=== PATIENT | female | born 1970 | race American Indian/Alaskan Native ===

== ENCOUNTER 2016-09-15 13:55 | Emergency (ER) | payer MEDICAID ==
[2016-09-15 14:21] VITALS: BMI 38.2
[2016-09-15 14:52] LABS: ADD MANUAL DIFF? NO
[2016-09-15 14:59] LABS: BASO # 0.01 [, K/mm3] (0.0-2.0); BASO % 0.2 % (0.0-3.0); EOS # 0.1 (0.0-0.7); EOS % 1.2 % (1.5-5.0); GRAN # 1.85 (1.4-6.5); GRAN % 44.4 % (50.0-68.0); LYMPH # 1.8 (1.2-3.4); LYMPH % 43.9 % (22.0-35.0); MEAN CORPUSCULAR HEMOGLOBIN 29.6 pg (25.0-35.0); MEAN PLATELET VOLUME 10.7 fl (7.0-11.0); MONO # 0.4 (0.1-0.6); MONO % 10.3 % (1.0-6.0); PLATELET COUNT 194 [, 10^3/uL] (120.0-450.0); RED CELL DISTRIBUTION WIDTH 13.5 % (11.5-14.5); WHITE BLOOD COUNT 4.2 [, 10^3/ul] (4.5-11.0)
[2016-09-15 15:09] LABS: ALB/GLOB RATIO 1.3 (1.1-1.8); ALKALINE PHOSPHATASE 68 U/L (38-133); ALT/SGPT 31 U/L (7-56); AST/SGOT 15 U/L (15-39); BILIRUBIN,TOTAL 0.9 mg/dL (0.2-1.3); BLOOD UREA NITROGEN 9 mg/dL (7-21); CALCIUM 10.8 mg/dL (8.4-10.5); CARBON DIOXIDE 26 mmol/L (21-33); CHLORIDE 103 mmol/L (98-107); GFR AFRICAN-AMERICAN > 60; GLUCOSE,RANDOM 98 mg/dL (70-110); POTASSIUM 4.2 mmol/L (3.6-5.0); SODIUM 138 mmol/L (132-148)
[2016-09-15 15:10] LABS: INR 0.95 (0.93-1.08); PARTIAL THROMBOPLASTIN TIME 27.5 Seconds (23.7-30.8)
--- NOTE | 2016-09-15 15:10 | ED PDOC ---
Arrival/HPI - General Chief Complaint: Lower Extremity Problem/Injury Time Seen by Provider: 09/15/16 14:26 Historian: Patient - History of Present Illness Narrative History of Present Illness (Text): 09/15/16 15:05 A 45 year old male, in transition female to male (on testosterone), whose past medical history includes asthma, presents to the emergency department complaining of leg pain and swelling for a couple of weeks. Patient notes he takes Ibuprofen for pain, but no relief. Patient also reports no similar symptoms in the past. Patient denies any other complaints at this time. No recent trauma. Patient reports he took his last testosterone shot yesterday. PMD: [place] Symptom Onset: Sudden Symptom Course: Unchanged Activities at Onset: Rest Modifying Factors (Text): no relief with Ibuprofen Context: Home Associated Symptoms (Text): none Past Medical History - Provider Review Nursing Documentation Reviewed: Yes - Infectious Disease Hx of Infectious Diseases: None - Cardiac Hx Cardiac Disorders: No - Pulmonary Hx Respiratory Disorders: Yes Hx Asthma: Yes - Neurological Hx Neurological Disorder: No - HEENT Hx HEENT Disorder: No - Renal Hx Renal Disorder: No - Endocrine/Metabolic Hx Endocrine Disorders: No - Hematological/Oncological Hx Blood Disorders: No - Integumentary Hx Dermatological Disorder: No - Musculoskeletal/Rheumatological Hx Musculoskeletal Disorders: No - Gastrointestinal Hx Gastrointestinal Disorders: No - Genitourinary/Gynecological Hx Genitourinary Disorders: Yes Other/Comment: Pt currently transitioning to Male, uses testosterone injections weekly. - Psychiatric Hx Psychophysiologic Disorder: No Hx Substance Use: No - Anesthesia Hx Anesthesia: Yes Hx Anesthesia Reactions: No - Suicidal Assessment Feels Threatened In Home Enviroment: No Family/Social History - Physician Review Nursing Documentation Reviewed: Yes Family/Social History: No Known Family HX Smoking Status: Never Smoked Hx Alcohol Use: No Hx Substance Use: No Allergies/Home Meds Allergies/Adverse Reactions: Allergies No Known Allergies Allergy (Verified 09/15/16 14:21) Home Medications: Home Meds Medication Instructions Recorded Confirmed Testosterone Cypionate 200 ml IM QWK 09/15/16 09/15/16 [Depo-Testosterone Inj] Review of Systems - Physician Review All systems were reviewed & negative as marked: Yes - Review of Systems Constitutional: Normal Eyes: Normal ENT: Normal Respiratory: Normal Cardiovascular: Normal Gastrointestinal: Normal Genitourinary Female: Normal Musculoskeletal: Other (leg pain/swelling) Skin: Normal Neurological: Normal Endocrine: Normal Hemo/Lymphatic: Normal Psychiatric: Normal Physical Exam Vital Signs Reviewed: Yes Vital Signs Temp Pulse Resp BP Pulse Ox 09/15/16 14:23 98.1 F 95 H 18 127/87 98 Temperature: Afebrile Blood Pressure: Normal Pulse: Regular Respiratory Rate: Normal Appearance: Positive for: Well-Appearing, Non-Toxic, Comfortable Pain Distress: None Mental Status: Positive for: Alert and Oriented X 3 - Systems Exam Head: Present: Atraumatic, Normocephalic Pupils: Present: PERRL Extroacular Muscles: Present: EOMI Conjunctiva: Present: Normal Mouth: Present: Moist Mucous Membranes Neck: Present: Normal Range of Motion Respiratory/Chest: Present: Clear to Auscultation, Good Air Exchange. No: Respiratory Distress, Accessory Muscle Use Cardiovascular: Present: Regular Rate and Rhythm, Normal S1, S2. No: Murmurs Abdomen: Present: Normal Bowel Sounds. No: Tenderness, Distention, Peritoneal Signs Back: Present: Normal Inspection Upper Extremity: Present: Normal Inspection. No: Cyanosis, Edema Lower Extremity: Present: Tenderness (thigh tenderness). No: Edema, CALF TENDERNESS Neurological: Present: GCS=15, CN II-XII Intact, Speech Normal Skin: Present: Warm, Dry, Normal Color. No: Rashes Psychiatric: Present: Alert, Oriented x 3, Normal Insight, Normal Concentration Medical Decision Making ED Course and Treatment: 09/15/16 15:13 Impression: A 45 year old male with leg pain. 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 Differential Diagnosis included but are not limited to: Musculoskeletal pain r/ o DVT Plan: -- Labs -- Tylenol -- Reassess and disposition Prior Visits: Notes and results from previous visits were reviewed. Patient last reported to the emergency department on 02/04/16 for evaluation of BRBPR with BM. Patient was discharged and advised to follow up with PMD and clinic for colonoscopy. Progress Notes: 09/15/16 15:26 Patient labs reviewed. D-dimer negative. Electrolytes normal. Patient advised to follow up with primary care doctor this week and to return to the ED if symptoms worsen or any other concern. - Lab Interpretations Lab Results: 09/15/16 14:45 09/15/16 14:45 Lab Results 09/15/16 14:45: Sodium 138, Potassium 4.2, Chloride 103, Carbon Dioxide 26, Anion Gap 13, BUN 9, Creatinine 0.8, Est GFR ( Amer) > 60, Est GFR (Non- Af Amer) > 60, Random Glucose 98, Calcium 10.8 H, Total Bilirubin 0.9, AST 15, ALT 31, Alkaline Phosphatase 68, Total Protein 7.0, Albumin 3.9, Globulin 3.1, Albumin/Globulin Ratio 1.3 09/15/16 14:45: PT 10.3, INR 0.95, APTT 27.5, D-Dimer, Quantitative 0.19 09/15/16 14:45: WBC 4.2 L, RBC 5.17, Hgb 15.3, Hct 45.0, MCV 87.0, MCH 29.6, MCHC 34.0, RDW 13.5, Plt Count 194, MPV 10.7, Gran % 44.4 L, Lymph % (Auto) 43.9 H, Lamar % (Auto) 10.3 H, Eos % (Auto) 1.2 L, Baso % (Auto) 0.2, Gran # 1.85 , Lymph # 1.8, Lamar # 0.4, Eos # 0.1, Baso # 0.01 I have reviewed the lab results: Yes - Medication Orders Current Medication Orders: Discontinued Medications Acetaminophen (Tylenol 325mg Tab) 650 mg PO STAT STA Stop: 09/15/16 14:36 - Scribe Statement The provider has reviewed the documentation as recorded by the Scribe Arvin Banerjee All medical record entries made by the Lianeibrosaura were at my direction and personally dictated by me. I have reviewed the chart and agree that the record accurately reflects my personal performance of the history, physical exam, medical decision making, and the department course for this patient. I have also personally directed, reviewed, and agree with the discharge instructions and disposition. Disposition/Present on Arrival - Present on Arrival Any Indicators Present on Arrival: No History of DVT/PE: No History of Uncontrolled Diabetes: No Urinary Catheter: No History of Decub. Ulcer: No History Surgical Site Infection Following: None - Disposition Have Diagnosis and Disposition been Completed?: Yes Diagnosis: Leg pain, Leg swelling Disposition: HOME/ ROUTINE Disposition Time: 15:27 Patient Plan: Discharge Condition: IMPROVED Discharge Instructions (ExitCare): Leg Edema (ED) Additional Instructions: Ms Ruffin, thank you for letting us take care of you today. Your provider was Dr. Acevedo. You were treated for Leg Pain and Swelling. The emergency medical care you received today was directed at your acute symptoms. If you were prescribed any medication, please fill it and take as directed. It may take several days for your symptoms to resolve. Return to the Emergency Department if your symptoms worsen, do not improve, or if you have any other problems. Please contact your doctor or call one of the physicians/clinics you have been referred to that are listed on the Patient Visit Information form that is included in your discharge packet. Bring any paperwork you were given at discharge with you along with any medications you are taking to your follow up visit. Our treatment cannot replace ongoing medical care by a primary care provider (PCP) outside of the emergency department. Thank you for allowing the [facility] team to be part of your care today. If you had an X-Ray or CT scan: A Radiologist will review the ED reading if any change in treatment is needed we will contact you. If you had a blood, urine, or wound culture: It will take several days for the results, if any change in treatment is needed we will contact you. If you had an STI test: It will take 48 hours for the results. Please call after 1 week if you have not heard back. Referrals: [facility] Vesna Langford, [Non-Staff] - Follow up with primary Forms: [facility] ([place]), WORK NOTE
[2016-09-15 15:12] LABS: D DIMER 0.19 mg/L FEU (0-0.50)
[2016-09-15 16:58] VITALS: BP 136/84; PULSE 72; RESP 16; TEMP 98.6; O2SAT 99
== END 2016-09-15 16:00 | disposition home or self-care (01) ==
LOC: ED 13:55
DX: M79.606 Pain in leg, unspecified (principal); M79.89 Other specified soft tissue disorders; Z79.899 Other long term (current) drug therapy

== ENCOUNTER 2017-01-21 14:30 | Emergency (ER) | payer SELFPAY ==
[2017-01-21 14:39] VITALS: BMI 33.9
--- NOTE | 2017-01-21 14:55 | ED PDOC ---
Arrival/HPI - General Chief Complaint: Wound Check Time Seen by Provider: 01/21/17 14:39 Historian: Patient - History of Present Illness Narrative History of Present Illness (Text): 01/21/17 14:54 A 46 year old transgender male presents to the emergency department for wound evaluation s/p double mastectomy done on 12/21/16. Patient reports his drain from right breast was removed a few days ago and has been experiencing constant drainage from the site. Patient noted mild swelling and became concerned causing him to come in for further evaluation. Patient denies any fever, chills or any other complaints. PMD is located in [place] Surgeon: Dr. Brain Trinh, located in [place] ([phone]) Time/Duration: Other (few days) Symptom Course: Unchanged Quality: Other Context: Home Past Medical History - Provider Review Nursing Documentation Reviewed: Yes - Infectious Disease Hx of Infectious Diseases: None - Cardiac Hx Cardiac Disorders: No - Pulmonary Hx Respiratory Disorders: Yes Hx Asthma: Yes - Neurological Hx Neurological Disorder: No - HEENT Hx HEENT Disorder: No - Renal Hx Renal Disorder: No - Endocrine/Metabolic Hx Endocrine Disorders: No - Hematological/Oncological Hx Blood Disorders: No - Integumentary Hx Dermatological Disorder: No - Musculoskeletal/Rheumatological Hx Musculoskeletal Disorders: No - Gastrointestinal Hx Gastrointestinal Disorders: No - Genitourinary/Gynecological Hx Genitourinary Disorders: Yes Other/Comment: Pt currently transitioning to Male, uses testosterone injections weekly. - Psychiatric Hx Psychophysiologic Disorder: No Hx Substance Use: No - Anesthesia Hx Anesthesia: Yes Hx Anesthesia Reactions: No - Suicidal Assessment Feels Threatened In Home Enviroment: No Family/Social History - Physician Review Nursing Documentation Reviewed: Yes Family/Social History: No Known Family HX Smoking Status: Never Smoked Hx Alcohol Use: No Hx Substance Use: No Allergies/Home Meds Allergies/Adverse Reactions: Allergies No Known Allergies Allergy (Verified 09/15/16 14:21) Home Medications: Home Meds Medication Instructions Recorded Confirmed Testosterone Cypionate 200 ml IM QWK 09/15/16 01/21/17 [Depo-Testosterone Inj] Review of Systems - Physician Review All systems were reviewed & negative as marked: Yes - Review of Systems Constitutional: absent: Fevers, Night Sweats Musculoskeletal: Other (Swelling and drainage from site on right breast s/p double mastectomy) Physical Exam Vital Signs Pulse Resp BP Pulse Ox 01/21/17 15:33 99 H 17 130/87 100 01/21/17 14:40 92 H 17 125/89 100 Temperature: Afebrile Blood Pressure: Normal Pulse: Regular Respiratory Rate: Normal Appearance: Positive for: Well-Appearing, Non-Toxic, Comfortable Pain Distress: None Mental Status: Positive for: Alert and Oriented X 3 - Systems Exam Head: Present: Atraumatic, Normocephalic Pupils: Present: PERRL Extroacular Muscles: Present: EOMI Conjunctiva: Present: Normal Breast/Axillary: Present: Other (Serosanguinous drainage from site along right breast when area was pressed on; no warmth; no pyus), Swelling (along right side of breast towards drain site approximately 4-5 mm in size). No: Erythema Neurological: Present: GCS=15, CN II-XII Intact, Speech Normal Skin: Present: Warm, Dry, Normal Color. No: Rashes Psychiatric: Present: Alert, Oriented x 3, Normal Insight, Normal Concentration Medical Decision Making ED Course and Treatment: 01/21/17 14:54 Impression: A 46 year old transgender male with swelling and drainage from site on right breast s/p double mastectomy. No cellulitis. No pus. Progress Notes: 01/21/17 14:[address] Brain Trinh, patient's surgeon, who states patients symptoms are normal after this type of procedure. He states it is not unusual for the drainage to continue since patient had surgical drains placed in longer than normal. He does not recommend any antibiotics at this time. I am in agreement with plan. Patient instructed to follow up tomorrow in Dr. Trinh' office for evaluation and possible drainage if needed. 01/21/17 15:07 Patients wound was cleaned with sterile water and gauze was applied. Patient in agreement with plan to be discharged home. Patient understands to follow up with Dr. Trinh tomorrow. - Scribe Statement The provider has reviewed the documentation as recorded by the Lianeibrosaura Winston Provider Scribe Attestation: All medical record entries made by the Scribe were at my direction and personally dictated by me. I have reviewed the chart and agree that the record accurately reflects my personal performance of the history, physical exam, medical decision making, and the department course for this patient. I have also personally directed, reviewed, and agree with the discharge instructions and disposition. Disposition/Present on Arrival - Present on Arrival Any Indicators Present on Arrival: No History of DVT/PE: No History of Uncontrolled Diabetes: No Urinary Catheter: No History of Decub. Ulcer: No History Surgical Site Infection Following: None - Disposition Have Diagnosis and Disposition been Completed?: Yes Diagnosis: Visit for wound check Disposition: HOME/ ROUTINE Disposition Time: 15:07 Condition: IMPROVED Additional Instructions: Mr Ruffin, thank you for letting us take care of you today. Your provider was Dr. Acevedo. You were treated for Wound Check. The emergency medical care you received today was directed at your acute symptoms. If you were prescribed any medication, please fill it and take as directed. It may take several days for your symptoms to resolve. Return to the Emergency Department if your symptoms worsen, do not improve, or if you have any other problems. Please contact your doctor or call one of the physicians/clinics you have been referred to that are listed on the Patient Visit Information form that is included in your discharge packet. Bring any paperwork you were given at discharge with you along with any medications you are taking to your follow up visit. Our treatment cannot replace ongoing medical care by a primary care provider (PCP) outside of the emergency department. Thank you for allowing the [facility] team to be part of your care today. If you had an X-Ray or CT scan: A Radiologist will review the ED reading if any change in treatment is needed we will contact you. If you had a blood, urine, or wound culture: It will take several days for the results, if any change in treatment is needed we will contact you. If you had an STI test: It will take 48 hours for the results. Please call after 1 week if you have not heard back. Referrals: [facility] Vesna Req, [Primary Care Provider] - Follow up with primary Forms: [employer] (Yakut), WORK NOTE
[2017-01-21 15:34] VITALS: BP 130/87; PULSE 99; RESP 17; O2SAT 100
[2017-01-21 17:55] VITALS: TEMP 98.5
== END 2017-01-21 15:35 | disposition home or self-care (01) ==
LOC: ED 14:30
DX: Z51.89 Encounter for other specified aftercare (principal)